=== PATIENT | female | born 1985 | race Caucasian/White ===

== ENCOUNTER 2020-03-19 00:50 | Day surgery (SDC) | payer OTHER, SELFPAY ==
[2020-03-09 17:41] VITALS: BMI 24.8
--- NOTE | 2020-03-17 12:25 | WPDANESEPPF ---
Anes - Initial Pre Proc Eval Procedure: Operation Date: 03/19/20 10:00 Proposed Procedures p Bilateral Augmentation Mammoplasty - Michael Hernandez MD s Abdominal Liposuction - Michael Hernandez MD Date/Time: 03/17/20 12:25 Surgeon: Michael Hernandez MD Pre Op Diagnosis: Micromastia/ Excess Adipose Tissue Of Abdomen Patient Data Age: 34 Gender: F Height: 1.6 m Weight: 63.63 kg Allergies Allergy/AdvReac Type Severity Reaction Status Date / Time cat dander Allergy Intermediate Hives Verified 03/19/20 08:04 grass pollen Allergy Intermediate Watery Eye Verified 03/19/20 08:04 Home Medications Medication Instructions Recorded Confirmed Type azelastine-fluticasone 137 mcg-50 1 spray INTRANASAL BID 12/26/19 03/19/20 History mcg/spray nasal spray buspirone 5 mg tablet 5 mg PO PRN 12/26/19 03/19/20 History levocetirizine 5 mg tablet 5 mg PO DAILY 12/26/19 03/19/20 History montelukast 10 mg tablet 10 mg PO DAILY 12/26/19 03/19/20 History carisoprodol 350 mg tablet 350 mg PO TID PRN #21 tablet 03/04/20 03/19/20 Rx oxycodone-acetaminophen 5 mg-325 1 tablet PO Q6H PRN #15 tablet 03/04/20 03/19/20 Rx mg tablet Patient hx anesthesia problems: none Family hx anesthesia problems: none PMFSH Past Medical History Medical History (Updated 03/17/20 @ 12:26 by Tim Gasca DO) Anxiety Asthma exercise induced Surgical History Surgical History History of rectal polypectomy Family History Family History Other Hypothyroidism Social History Social History Smoking status: Never smoker Alcohol intake: current Substance use: never Living arrangements: with family Spiritual care concerns: No Anes - Eval Final PreProcedure Day of Procedure 03/17/20 12:25 Patient weight: normal Heart: regular rate and rhythm Lungs: clear to auscultation and normal air movement Airway: Mallampati scale class II Neurological: alert and oriented Last oral intake: >/= 8 hours ASA classification: II Emergent: no Anesthetic plan: proceed Anesthesia type and monitoring: general ETT and standard monitoring Informed Consent: The patient's anesthetic plan and its attendant risks and benefits were discussed with the patient/family/POA. Questions were solicited and answers provided to the satisfaction of the patient/family/POA.
[2020-03-19] VITALS (14 sets, daily range): BP systolic 95–124; BP diastolic 54–72; PULSE 59–111; RESP 14–18; TEMP 35.9–36.8; O2SAT 97–100; BMI 24.8
--- NOTE | 2020-03-19 08:36 | WPDHPUPDATE1 ---
History and Physical Update Update Date/Time: 03/19/20 08:36 History and Physical has been reviewed, including an updated exam of the patient. There are NO changes in the patient's condition. Risks, benefits, and alternatives have been discussed and questions answered. Patient agrees to proceed with procedure.
--- NOTE | 2020-03-19 08:36 | SUR.PREOP ---
DR SANTILLAN MARKING PT. STAFF IN ROOM
[2020-03-19] MEDS: LACTATED RINGERS 1,000 ML 30 ML IV CONT ×2 (08:37→12:24)
--- NOTE | 2020-03-19 08:49 | P.OP_ITS ---
Procedure Note - Detailed Date of procedure: 03/19/20 Pre-op diagnosis: Micromastia/ Excess Adipose Tissue Of Abdomen Post-op diagnosis: same Procedure performed: 1. Bilateral augmentation mammoplasty 2. Suction lipectomy abdomen and flanks Description of procedure: She is here today for bilateral breast augmentation and suction lipectomy of abdomen and flanks. Previously and again today the risks, benefits, alternatives were discussed in extensive detail. I wanted her to be very realistic about the risks involved as well as expectations. I was very up front about the risks of contour irregularity in the limitations of her anatomy. We discussed aftercare and what to monitor for. Made sure answered all of her questions to her satisfaction today and consent was obtained. Marked in the preoperative holding area with their verification. The patient was taken to the operating room placed supine on the operating table. Anesthesia was provided by anesthesiology. A surgical time-out was taken. She was prepped and draped in a standard sterile fashion. Tumescent was used through stab incisions in the abdomen for the abdomen and flanks. We completed tumescent of the area involved. I then proceeded with a 4 mm basket cannula with a modification of the S.A.F.E. technique in multiple planes and passes. This was done supine as well as in the lateral decubitus position to a rolling pinch test as well as observation making sure we had good smooth contour. I re-prepped. 1% lidocaine and 0.25% Marcaine with epinephrine was used to provide a field block for the breast. Tegaderm nipple Meléndez were placed. A 15 blade used to make an incision along the inframammary fold. Dissection was continued at 45 degree angle until the chest wall as identified. I incised the pectoralis major along its inferior border and completely released the inferior border leaving the medial border intact. I created a subpectoral pocket in the appropriate dimensions based on our preoperative planning for the implant. I then copiously irrigated with saline solution and verified a strict hemostasis. Next the use a triple antibiotic and Betadine containing solution to irrigate the pocket. I washed my gloves with the triple antibiotic and Betadine solution. We washed the implant immediately upon opening it with this solution and only opened it when we needed it. I used implant funnel and no-touch technique. The implant was introduced into the pocket using the funnel. Having verified positioning of the implant this was closed using 2-0 Vicryl followed by 3-0 Monocryl in a running subcuticular 4-0 Monocryl followed by tissue glue. Fluffs, Santos wrap, and surgical bra were placed. Patient was awoke and taken to PACU without difficulty. All instrument sponge counts were correct at the end of the case. Anesthesia: GLMA Surgeon: Michael Hernandez MD Estimated blood loss (mL): 30 Drains: No Packing: No Pathology: none sent Complications: No immediate complications Condition: stable Disposition: PACU Findings: Suction lipectomy volume 1250cc Bilateral dual plane 1 augmentation [employer] SoftTouch Silicone Implants 400cc Right: REF SSX-400 SN [id number] Left: REF SSX-400 SN [id number]
[2020-03-19] MEDS: ceFAZolin 2 GM/D5W 50 ML 2 GM/50 ML BAG IVPB (09:41)
[2020-03-19] MEDS: LIDO 1%/EPINEPHRINE 1:100,000 50 ML VIAL 30 ML INFILTRATE (10:27)
--- NOTE | 2020-03-19 12:42 | SUR.PHASEI ---
1224; PT INTO PACU PER BED. AWAKE. C/O URGE TO VOID. PT PLACED ON BEDPAN
--- NOTE | 2020-03-19 12:48 | SUR.PHASEI ---
PT REMAINS ON BEDPAN. STATES UNABLE TO VOID ON BEDPAN.
[2020-03-19] MEDS: fentaNYL CITRATE INJ (*CRX) 100 MCG/2 ML VIAL 25 MCG IV PUSH ×4 (12:56→13:31)
--- NOTE | 2020-03-19 12:59 | SUR.PHASEI ---
PT REMAINS ON BEDPAN. OFFERED TO CALL DR SANTILLAN REGARDING STRAIGHT CATH. PT REFUSED.
--- NOTE | 2020-03-19 13:25 | SUR.PHASEI ---
1303; PT C/O FEELING VERY FULL IN THE BLADDER. BLADDER DISTENTION NOTED. CALLED DR SANTILLAN. ORDER FOR STRAIGHT CATH. 1325; PT WAS STRAIGHT CATHED WITHOUT DIFFICULTY, RESULTED IN 650ML CLEAR YELLOW URINE. CATHETER DC'D INTACT. PT STATES SHE FEEL MUCH BETTER NOW.
[2020-03-19] MEDS: LACTATED RINGERS 1,000 ML 125 ML IV CONT (14:10)
[2020-03-19] MEDS: MORPHINE SULFATE (*CRX) 2 MG/ML INJ IV PUSH (14:42)
--- NOTE | 2020-03-19 14:53 | ADMGEN ---
This patient, Thania Alvarado, was admitted to OB 2nd Floor Room 289-00. Patient/family oriented to hospital policies and general routines including ID bracelet, bed and alarms, visiting hours, pain management, procedures, bathroom and other care routines, personal items, smoking policy, room service/diet, and visiting hours. Information on how to activate the Rapid Response Team has been discussed. Patient/Family are encouraged to report perceived risks to care and to ask questions if they do not understand what they are told or what they should do.
[2020-03-19] MEDS: carisoprodoL (*CRX) 350 MG TABLET PO (18:07)
[2020-03-19] MEDS: oxyCODONE/ACETAMINOPHEN (*CRX) 5-325 MG TABLET PO (18:09)
[2020-03-19] MEDS: DOCUSATE SODIUM 100 MG CAPSULE PO (21:30)
[2020-03-20] MEDS: oxyCODONE/ACETAMINOPHEN (*CRX) 5-325 MG TABLET PO ×3 (00:13→12:24)
[2020-03-20] MEDS: carisoprodoL (*CRX) 350 MG TABLET PO ×3 (00:14→12:24)
[2020-03-20 00:15] VITALS: BP 102/62; PULSE 85; RESP 18; TEMP 36.9
[2020-03-20 05:30] VITALS: BP 97/54; PULSE 81; RESP 16; TEMP 36.8
[2020-03-20] MEDS: DOCUSATE SODIUM 100 MG CAPSULE PO (07:58)
[2020-03-20 08:00] VITALS: BP 92/61; PULSE 81; RESP 16; RESP 18; TEMP 36.8; O2SAT 99
--- NOTE | 2020-03-20 10:18 | WPDPN ---
Progress Note: A&P Assessment and Plan (1) Micromastia: Code(s): N64.82 - Hypoplasia of breast Status: Acute Assessment and Plan: She is doing very well after: 1. Bilateral augmentation mammoplasty 2. Suction lipectomy abdomen and flanks Will discharge home. Follow-up. Today we had a lengthy discussion about the care. What monitor for. This was a lengthy open-ended conversation with her and her . Made sure answered all of their questions to their satisfaction. I will see them back. They may attempt to do early follow-up visits virtually. (2) Localized adiposity: Code(s): E65 - Localized adiposity Status: Acute Review of Systems Review of Systems: All systems reviewed & are unremarkable except as noted in HPI and below Exam Narrative: Exam Narrative: Bilateral breasts are soft. No signs of infection. No hematoma. No seroma. Abdomen is soft. No signs of hematoma. No seroma. No calf tenderness. Negative Homans. Const: General: comfortable, no acute distress, alert and awake; No acute distress Orientation/consciousness: oriented to person HENMT: Head: normal to inspection Ears: external ears normal General nose exam: Normal external nose present Face and sinus: normal facial exam Eyes: General: appearance normal, both eyes and all related structures Periorbital: periorbital findings normal Eyelids: eyelids normal Conjunctivae: conjunctivae normal Neck: Neck: normal visual inspection Chest: Chest palpation & inspection: normal inspection of the chest Resp: Effort & Inspection: normal respiratory effort and able to speak in complete sentences GI: Inspection: normal to inspection Neuro: General: oriented to person Psych: Appearance: grossly normal Mental Status: mental status grossly normal Objective Data Vital Signs Vital Signs: Vital Signs - 24 hr 03/19/20 12:24 03/19/20 12:40 03/19/20 12:55 Temperature 35.9 C L 36.0 C L 36.1 C L Pulse Rate 111 H 97 94 Respiratory Rate 14 18 18 Blood Pressure 113/56 L 115/71 119/72 Pulse Oximetry 100 100 100 03/19/20 13:10 03/19/20 13:25 03/19/20 13:50 Temperature 36.8 C Pulse Rate 90 78 92 Respiratory Rate 16 16 16 Blood Pressure 109/70 108/66 110/71 Pulse Oximetry 98 98 98 03/19/20 14:00 03/19/20 14:15 03/19/20 14:30 Temperature Pulse Rate 64 70 98 Respiratory Rate 16 16 16 Blood Pressure 96/63 L 108/67 109/63 Pulse Oximetry 98 98 97 03/19/20 15:00 03/19/20 16:00 03/19/20 17:00 Temperature 36.8 C Pulse Rate 59 L 79 68 Respiratory Rate 16 16 16 Blood Pressure 95/59 L 96/54 L 97/62 L Pulse Oximetry 97 97 99 03/19/20 20:00 03/20/20 00:15 03/20/20 05:30 Temperature 36.7 C 36.9 C 36.8 C Pulse Rate 86 85 81 Respiratory Rate 18 18 16 Blood Pressure 124/64 102/62 97/54 L Pulse Oximetry 03/20/20 08:00 Temperature 36.8 C Pulse Rate 81 Respiratory Rate 18 Blood Pressure 92/61 L Pulse Oximetry 99 Intake/Output Intake/Output: Intake & Output 03/17/20 03/18/20 03/19/20 03/20/20 23:59 23:59 23:59 23:59 Intake Total 1508 Output Total 1400 Balance 108 Meds/Results Medications: Active Medications Generic Name Dose Route Start Last Admin Trade Name Freq PRN Reason Stop Dose Admin Buspirone HCl 5 mg 03/19/20 13:48 Buspirone Hcl 5 Mg Tablet PO PRN REINA Carisoprodol 350 mg 03/19/20 18:00 03/20/20 05:44 Carisoprodol (*Crx) 350 Mg Tablet PO 350 mg Q6HR REINA Administration Docusate Sodium 100 mg 03/19/20 21:00 03/20/20 07:58 Docusate Sodium 100 Mg Capsule PO 100 mg Q12HR REINA Administration Lactated Ringer's 1,000 mls @ 125 mls/hr 03/19/20 12:45 03/19/20 18:19 Lr - Lactated Ringers Iv IV CONT 125 mls/hr .Q8H REINA Infusion Ibuprofen 600 mg 03/20/20 10:05 Ibuprofen 600 Mg Tablet PO Q6H PRN Cramping Loratadine 10 mg 03/20/20 09:00 Loratadine 10 Mg Tablet PO 04/19/20 09:01 DAILY [facility] [place]
--- NOTE | 2020-03-20 10:22 | P.DS_ITS ---
DS: Admitting Diagnosis Admitting Diagnosis Admitting Diagnosis: Micromastia Localized adiposity DS: Discharge Diagnosis Discharge Diagnosis (1) Micromastia: Code(s): N64.82 - Hypoplasia of breast Status: Acute Assessment and Plan: Will plan for discharge home. Follow-up. (2) Localized adiposity: Code(s): E65 - Localized adiposity Status: Acute DS: Summary Hospital Course Hospital Course: Patient underwent bilateral augmentation mammoplasty and suction lipectomy of abdomen and flank. Postop really is done well. Pain c ontrolled. Ambulating. Will discharge home. Follow-up. Time Spent with Patient Time attestation: Total time spent providing and/or coordinating discharge services: Exam Narrative: Exam Narrative: Bilateral breasts are soft. No signs of infection. No hematoma. No seroma. Abdomen is soft. No signs of hematoma. No seroma. No calf tenderness. Negative Homans. Const: General: comfortable, no acute distress, alert and awake; No acute distress Orientation/consciousness: oriented to person HENMT: Head: normal to inspection Ears: external ears normal General nose exam: Normal external nose present Face and sinus: normal facial exam Eyes: General: appearance normal, both eyes and all related structures Periorbital: periorbital findings normal Eyelids: eyelids normal Conjunctivae: conjunctivae normal Neck: Neck: normal visual inspection Chest: Chest palpation & inspection: normal inspection of the chest Resp: Effort & Inspection: normal respiratory effort and able to speak in complete sentences GI: Inspection: normal to inspection Neuro: General: oriented to person Psych: Appearance: grossly normal Mental Status: mental status grossly normal Discharge Plan Discharge Patient Disposition: Home, Self-Care Discharge Instructions: POST OPERATIVE DISCHARGE INSTRUCTIONS FOR: Breast Augmentation / Liposuction HAYDEE SANTILLAN M.D. [facility] [address] [place] [address] * No driving for 24 hours after anesthesia and while you are taking pain medication. * Take all prescribed medication as directed * Diet as tolerated. * Begin gentle shoulder rolls and arm stretches 10 times per hour. * No lifting or activity that raises blood pressure for 48 hours. * Regular walking / ambulation. * No showering until directed to. * No pools or tubs for 2 weeks. * Call with any questions or concerns. * Anticipate drainage for the next 24-48 hours from the suction lipectomy site. * After 24 hours you may remove the dressings and bra. At this point my may shower. Do not take pain medication before showering as the combination of medication and heat may cause you to feel dizzy or pass out. Let soap and kurt er run over your incisions. Do not scrub or directly wash your incision. Replace the surgical bra and garment. Wear it 23 hours per day. If you have any questions or concerns, please call the office . If it is after hours you will be directed to the section beamer exchange. Shortness of breath, chest pain, or other medical emergency dial 911 / proceed to the Emergency Room. Stand Alone Forms: General Discharge Instructions Follow-up/Referrals:
--- NOTE | 2020-03-20 10:22 | PM.DS ---
DS: Admitting Diagnosis Admitting Diagnosis Admitting Diagnosis: Micromastia Localized adiposity DS: Discharge Diagnosis Discharge Diagnosis (1) Micromastia: Code(s): N64.82 - Hypoplasia of breast Status: Acute Assessment and Plan: Will plan for discharge home. Follow-up. (2) Localized adiposity: Code(s): E65 - Localized adiposity Status: Acute DS: Summary Hospital Course Hospital Course: Patient underwent bilateral augmentation mammoplasty and suction lipectomy of abdomen and flank. Postop really is done well. Pain controlled. Ambulating. Will discharge home. Follow-up. Time Spent with Patient Time attestation: Total time spent providing and/or coordinating discharge services: Exam Narrative: Exam Narrative: Bilateral breasts are soft. No signs of infection. No hematoma. No seroma. Abdomen is soft. No signs of hematoma. No seroma. No calf tenderness. Negative Homans. Const: General: comfortable, no acute distress, alert and awake; No acute distress Orientation/consciousness: oriented to person HENMT: Head: normal to inspection Ears: external ears normal General nose exam: Normal external nose present Face and sinus: normal facial exam Eyes: General: appearance normal, both eyes and all related structures Periorbital: periorbital findings normal Eyelids: eyelids normal Conjunctivae: conjunctivae normal Neck: Neck: normal visual inspection Chest: Chest palpation & inspection: normal inspection of the chest Resp: Effort & Inspection: normal respiratory effort and able to speak in complete sentences GI: Inspection: normal to inspection Neuro: General: oriented to person Psych: Appearance: grossly normal Mental Status: mental status grossly normal Discharge Plan Discharge Patient Disposition: Home, Self-Care Discharge Instructions: POST OPERATIVE DISCHARGE INSTRUCTIONS FOR: Breast Augmentation / Liposuction MICHAEL HERNANDEZ M.D. [facility] [place] [address] [address] driving for 24 hours after anesthesia and while you are taking pain medication. Take all prescribed medication as directed Diet as tolerated. Begin gentle shoulder rolls and arm stretches 10 times per hour. No lifting or activity that raises blood pressure for 48 hours. Regular walking / ambulation. No showering until directed to. No pools or tubs for 2 weeks. Call with any questions or concerns. Anticipate drainage for the next 24-48 hours from the suction lipectomy site. After 24 hours you may remove the dressings and bra. At this point my may shower. Do not take pain medication before showering as the combination of medication and heat may cause you to feel dizzy or pass out. Let soap and water run over your incisions. Do not scrub or directly wash your incision. Replace the surgical bra and garment. Wear it 23 hours per day. If you have any questions or concerns, please call the office . If it is after hours you will be directed to the insurance commissioner exchange. Shortness of breath, chest pain, or other medical emergency dial 911 / proceed to the Emergency Room. Stand Alone Forms: General Discharge Instructions Follow-up/Referrals: Michael Hernandez MD [Physician] - 1 Week (03/23/2020) Discharge Orders: Discharge Order (Routine); Ordered 03/20/20 Ordered By: Michael Hernandez Discharge Medications: New ibuprofen 600 mg Tablet 600 mg PO Q6H PRN (Reason: Cramping) Qty: 0 RF: 0 Continued levocetirizine 5 mg tablet 5 mg PO DAILY RF: 0 montelukast 10 mg tablet 10 mg PO DAILY RF: 0 azelastine-fluticasone [Dymista] 137-50 mcg/spray spray,non-aerosol 1 spray intranasal BID RF: 0 buspirone 5 mg tablet 5 mg PO PRN RF: 0 carisoprodol [Soma] 350 mg tablet 350 mg PO TID PRN (Reason: muscle pain) Qty: 21 RF: 0 oxycodone-acetaminophen [Percocet] 5-325 mg tablet
--- NOTE | 2020-03-20 10:39 | WPDANESPN ---
Anes - Prog Note Post-Op Date/Time: 03/20/20 10:39 Cardiovascular status: normal Respiratory status: normal Airway patency: baseline Mental status: baseline Post-Op hydration status: normal Vital Signs: Last Vital Signs Temp 36.8 C 03/20/20 08:00 Pulse 81 03/20/20 08:00 Resp 18 03/20/20 08:00 BP 92/61 L 03/20/20 08:00 Pulse Ox 99 03/20/20 08:00 Pain Score (VAS): 4 I/O: Intake & Output 03/19/20 03/20/20 03/20/20 23:59 07:59 15:59 Intake Total 1308 Output Total 750 Balance 558 Post-procedural complaints: none Patient Feedback: Patient satisfied with anesthetic care.
[2020-03-20] MEDS: IBUPROFEN 600 MG TABLET PO (11:32)
== END 2020-03-20 13:00 | disposition home or self-care (01) ==
LOC: ANHSURGERY 09:48 → ANHOB2 13:29
PROVIDERS: Visit Provider Surgery Plastic and Reconstructive Surgery
PROC: (CPT 19325; principal; 2020-03-19 10:00)
PROC: (CPT 15877; 2020-03-19 10:00)
DX: Z41.1 Encounter for cosmetic surgery (principal); N64.82 Hypoplasia of breast; E65 Localized adiposity; F41.9 Anxiety disorder, unspecified; J45.909 Unspecified asthma, uncomplicated
CPT/HCPCS: 19325; 15877; 99199; A9270; J0131; J0171; J0690; J1100; J1580; J2250; J2270; J2370; J2405; J2704; J3010; J7120